=== PATIENT | female | born 1945 | race Caucasian/White ===

== ENCOUNTER 2019-05-09 16:21 | Observation (INO) | payer MEDICARE ==
[2019-05-08 22:45] VITALS: BP 138/72
[~2019-05-09] VITALS: Ht 154.9 cm; Wt 88.5 kg
[~2019-05-09 16:21] MED LIST: CITA-107 PO; LORA0.5T2 PO; ROSU20TA31 PO
[2019-05-09] MEDS ORDERED: ASPIRIN 325 MG TABLET ONE (16:45)
[2019-05-09 16:52] LABS: CREATININE 0.9 mg/dL (0.5-1.5); INR 0.93 (0.85-1.15); PARTIAL THROMBOPLASTIN TIME 23.9 SEC (26.3-35.5); POTASSIUM 3.8 mmol/L (3.5-5.1); PROTHROMBIN TIME 9.8 SEC (9.6-11.6)
[2019-05-09 16:56] LABS: ALBUMIN 3.9 g/dL (3.5-5.0); BILIRUBIN,TOTAL 0.4 mg/dL (0.2-1.0); TOTAL PROTEIN, SERUM 7.1 g/dL (6.0-8.3)
[2019-05-09 17:17] LABS: BASOPHILS % (AUTO) 0.6 % (0.0-5.0); EOSINOPHILS % (AUTO) 0.7 % (0.0-8.0); HEMATOCRIT 40.9 % (36-48); LYMPHOCYTES % (AUTO) 35.5 % (21.0-51.0); MEAN CORPUSCULAR HEMOGLOBIN 31.5 pg (27.0-33.0); MEAN CORPUSCULAR HGB CONC 33.7 g/dL (32.0-36.0); MEAN CORPUSCULAR VOLUME 93.5 fL (79-99); MONOCYTES % (AUTO) 13.4 % (3.0-13.0); NEUTROPHILS % (AUTO) 49.8 % (40.0-77.0); NUCLEATED RED BLOOD CELLS 0.1 % (0.0-0.19); PLATELET COUNT (AUTO) 192 K/uL (130-400); RED BLOOD CELL COUNT(AUTO) 4.37 MIL/uL (4.00-5.50); RED CELL DISTRIBUTION WIDTH 13.4 % (11.0-15.5); WHITE BLOOD COUNT (AUTO) 3.1 K/uL (4.8-10.8)
[2019-05-09] MEDS ORDERED: NITROGLYCERIN 1GM/1 INCH PACKET TD ONE (18:52)
[2019-05-09 18:55] LABS: APPEARANCE,URINE Clear (CLEAR); BILIRUBIN,URINE Negative (NEGATIVE); COLOR,URINE Yellow (YELLOW); GLUCOSE, URINE (UA) Negative (NEGATIVE); KETONES,URINE Negative (NEGATIVE); LEUKOCYTE ESTERASE ,URINE Trace (NEGATIVE); NITRATE,URINE Negative (NEGATIVE); OCCULT BLOOD,URINE Negative (NEGATIVE); PROTEIN,URINE Negative (NEGATIVE); UROBILINOGEN,URINE 0.2 mg/dL (0.2-1.0)
[2019-05-09 19:44] LABS: BACTERIA,URINE Few /HPF (None Seen); RBC,URINE 0-1 /HPF (0-1); WBC,URINE 0-1 /HPF (0-1)
[2019-05-09] MEDS ORDERED: HYDRALAZINE HCL 20 MG/ML VIAL IV PRN (20:45)
[2019-05-09] MEDS ORDERED: LACTATED RINGERS 1000ML 1,000 ML IV SCH (21:30)
[2019-05-09] MEDS ORDERED: FAMOTIDINE/PF 20 MG/2 ML VIAL IV ONE (21:48)
[2019-05-09] MEDS ORDERED: LACTATED RINGERS 1000ML 1,000 ML IV ONE (22:36)
--- NOTE | 2019-05-09 23:00 | NUR ---
Admission Assessment Received pt from ED per wheelchair with no family around, LR at 75cc/hr infusing well, routine admission assessment done, plan of care discuss, claimed has no chest pain only felt some chest pressure with SOB prior to admission. PT currently denies discomfort. Pt reminded on NPO post MN for any possibility of procedure once seen by a mandrel maker, currently pending to be seen by Dr. Larios. Re: Flu/Pneumonia vaccination pt stated she is current with it.
[2019-05-09] MEDS ORDERED: DULO60CA64 PO (23:29)
[2019-05-09] MEDS ORDERED: LORAZEPAM 0.5 MG TABLET ONE (23:35)
[2019-05-10 00:49] VITALS: BP 126/69
[2019-05-10] MEDS ORDERED: ACETAMINOPHEN 325 MG TAB ONE (01:56)
[2019-05-10] MEDS ORDERED: ACETAMINOPHEN 325 MG TAB PO PRN (02:00)
[2019-05-10 04:22] VITALS: BP 124/63
[2019-05-10 04:33] LABS: BASOPHILS % (AUTO) 0.3 % (0.0-5.0); EOSINOPHILS % (AUTO) 0.6 % (0.0-8.0); LYMPHOCYTES % (AUTO) 35.2 % (21.0-51.0); MEAN CORPUSCULAR HEMOGLOBIN 31.2 pg (27.0-33.0); MEAN CORPUSCULAR HGB CONC 33.9 g/dL (32.0-36.0); MEAN CORPUSCULAR VOLUME 92.2 fL (79-99); MONOCYTES % (AUTO) 17.3 % (3.0-13.0); NEUTROPHILS % (AUTO) 46.6 % (40.0-77.0); PLATELET COUNT (AUTO) 194 K/uL (130-400); RED BLOOD CELL COUNT(AUTO) 3.69 MIL/uL (4.00-5.50); RED CELL DISTRIBUTION WIDTH 12.9 % (11.0-15.5); WHITE BLOOD COUNT (AUTO) 3.5 K/uL (4.8-10.8)
[2019-05-10 04:39] LABS: HEMOGLOBIN A1C 6.2 % (4.0-6.0)
[2019-05-10 04:52] LABS: ALBUMIN 3.3 g/dL (3.5-5.0); BILIRUBIN,TOTAL 0.4 mg/dL (0.2-1.0); CREATININE 0.9 mg/dL (0.5-1.5); POTASSIUM 4.3 mmol/L (3.5-5.1); THYROID STIMULATING HORMONE 1.33 uIU/mL (0.36-3.74)
[2019-05-10 07:00] VITALS: BP 117/68
--- NOTE | 2019-05-10 08:00 | NUR ---
AM SHIFT ASSESSMENT,DENIES CHEST PAIN OR ANY OTHER DISCOMFORT AND STATES SHE IS READY TO GO HOME.
[2019-05-10] MEDS ORDERED: DULOXETINE HCL 30 MG CAP PO SCH (09:00)
[2019-05-10] MEDS ORDERED: ASPIRIN 81MG TAB.CHEW PO SCH (09:00)
[2019-05-10] MEDS ORDERED: ENOXAPARIN SODIUM 30 MG/0.3 ML SQ SCH (09:00)
[2019-05-10] MEDS ORDERED: FAMOTIDINE/PF 20 MG/2 ML VIAL IV SCH (09:00)
[2019-05-10] MEDS ORDERED: METO25TA6 PO (10:13)
[2019-05-10] MEDS ORDERED: ASPI-1005 PO (10:13)
[2019-05-10 11:00] VITALS: BP 120/72
--- NOTE | 2019-05-10 15:00 | NUR ---
DISCHARGED NOW USING TEACH BACK, VERBALIZES UNDERSTANDING OF ALL INST. GIVEN. SALINE LOCK DCD AND TELE-MONITOR REMOVED. WILL FOLLOW UP WITH PCP IN 3 DAYS.
[2019-05-10] MEDS ORDERED: ATORVASTATIN CALCIUM 40 MG TABLET PO SCH (21:00)
[2019-05-10] MEDS ORDERED: METOPROLOL TARTRATE 25 MG TAB PO SCH (21:00)
[2019-05-10] MEDS ORDERED: LORAZEPAM 0.5 MG TABLET PO SCH (21:00)
== END 2019-05-10 15:25 | disposition home or self-care (01) ==
LOC: EDH 16:21 → EDHIP 20:32 → INTOOBSV 20:32 → 3DH 22:45
PROVIDERS: ADMIT Internal Medicine; ATTEND Internal Medicine
DX: R07.89 Other chest pain (principal); R73.9 Hyperglycemia, unspecified; D72.819 Decreased white blood cell count, unspecified; E78.5 Hyperlipidemia, unspecified; R00.2 Palpitations; G47.00 Insomnia, unspecified; Z90.710 Acquired absence of both cervix and uterus; Z90.89 Acquired absence of other organs; Z79.82 Long term (current) use of aspirin; Z79.899 Other long term (current) drug therapy
CPT/HCPCS: 36415 ×2; 71045; 80053 ×2; 80061; 81001; 82150; 82550; 83036; 83690; 84443; 84484 ×3; 85025 ×2; 85610; 85730; 93005 ×2; 96372; 96374; 99284; 99285; G0378 ×3; J1650; J3490 ×2; J7120

== ENCOUNTER → 2019-07-15 | Outpatient (CLI) | payer OTHER ==
[~2019-07-15] MED LIST changes: +ASPI-1005 PO; -CITA-107 PO; +DULO60CA64 PO; +METO25TA6 PO
== END | disposition home or self-care (01) ==
LOC: RAH 13:32
PROVIDERS: ATTEND Internal Medicine Cardiovascular Disease
DX: Z13.6 Encounter for screening for cardiovascular disorders (principal)
CPT/HCPCS: 75571

== ENCOUNTER → 2022-07-20 | Outpatient (CLI) | payer OTHER | END | disposition home or self-care (01) | LOC: RAH 13:17 | PROVIDERS: ATTEND Internal Medicine Cardiovascular Disease | DX: Z13.6 Encounter for screening for cardiovascular disorders (principal) | CPT/HCPCS: 75571 ==

== ENCOUNTER 2024-04-22 10:04 | Emergency (ER) | payer MEDICARE ==
[~2024-04-22] VITALS: Ht 177.8 cm; Wt 86.2 kg
[~2024-04-22 10:04] MED LIST changes: -ROSU20TA31 PO; +ROSU20TA98 PO
[2024-04-22 10:39] LABS: BASOPHILS # (AUTO) 0.03 K/uL (0.00-0.20); BASOPHILS % (AUTO) 0.6 % (0.0-5.0); EOSINOPHILS # (AUTO) 0.05 K/uL (0.00-0.70); EOSINOPHILS % (AUTO) 1.1 % (0.0-8.0); HEMATOCRIT 42.4 % (36-48); IMMATURE GRANULOCYTE ABSOLUTE 0.01 K/uL (0-1); LYMPHOCYTES # (AUTO) 1.4 K/uL (1.0-4.8); LYMPHOCYTES % (AUTO) 30.1 % (21.0-51.0); MEAN CORPUSCULAR HEMOGLOBIN 30.1 pg (27.0-33.0); MEAN CORPUSCULAR VOLUME 91.2 fL (79-99); MONOCYTES # (AUTO) 0.3 K/uL (0.1-1.0); MONOCYTES % (AUTO) 6.8 % (3.0-13.0); NEUTROPHILS # (AUTO) 2.9 K/uL (1.8-7.7); NEUTROPHILS % (AUTO) 61.2 % (40.0-77.0); PLATELET COUNT (AUTO) 158 K/uL (130-400); RED BLOOD CELL COUNT(AUTO) 4.65 MIL/uL (4.00-5.50); RED CELL DISTRIBUTION WIDTH 12.5 % (11.0-15.5); WHITE BLOOD COUNT (AUTO) 4.7 K/uL (4.8-10.8)
[2024-04-22 10:44] LABS: CREATININE 0.7 mg/dL (0.5-1.0); POTASSIUM 4.4 mmol/L (3.5-5.1)
[2024-04-22 10:47] LABS: INR 0.98 (0.85-1.15); PROTHROMBIN TIME 10.6 SEC (9.6-11.6)
[2024-04-22 10:48] LABS: PARTIAL THROMBOPLASTIN TIME 20.3 SEC (26.3-35.5)
[2024-04-22 10:49] LABS: MAGNESIUM 2.1 mg/dL (1.80-2.40)
[2024-04-22 11:19] LABS: B-TYPE NATRIURETIC PEPTIDE 103 pg/mL (0-100)
[2024-04-22 13:16] VITALS: BP 137/67; PULSE 56; RESP 18; TEMP 98.4; O2SAT 99
== END 2024-04-22 13:56 | disposition home or self-care (01) ==
LOC: EDH 10:04
DX: R00.2 Palpitations (principal); Z04.89 Encounter for examination and observation for other specified reasons; E11.9 Type 2 diabetes mellitus without complications; E78.00 Pure hypercholesterolemia, unspecified; Z79.82 Long term (current) use of aspirin; Z90.710 Acquired absence of both cervix and uterus; Z79.899 Other long term (current) drug therapy
CPT/HCPCS: 36415; 71045; 80048; 82550; 83735; 83880; 84484; 85025; 85610; 85730; 93005